=== PATIENT | male | born 1985 | race Caucasian/White ===

== ENCOUNTER 2017-09-14 23:30 | Inpatient (IN) | payer MEDICAID ==
[~2017-09-14] VITALS: Ht 172.7 cm; Wt 81.8 kg
[2017-09-15] VITALS (17 sets, daily range): BP systolic 116–151; BP diastolic 64–100
[2017-09-15] MEDS ORDERED: vancomycin/NS 1 GM ADD-VANTAGE 250 ML IV ONE (01:40)
[2017-09-15 02:16] LABS: BASOPHILS % (AUTO) 0.3 % (0-1); EOSINOPHILS # (AUTO) 0.3 X10'3 (0-0.9); EOSINOPHILS % (AUTO) 1.6 % (0-6); HEMATOCRIT 39.1 % (42.0-52.0); HEMOGLOBIN 13.2 g/dl (14.0-17.9); LYMPHOCYTES # (AUTO) 1.6 X10'3 (1.1-4.8); LYMPHOCYTES % (AUTO) 8.7 % (21-51); MEAN CORPUSCULAR HEMOGLOBIN 30.3 PG (27.0-31.0); MEAN CORPUSCULAR HGB CONC 33.8 % (33.0-36.5); MEAN CORPUSCULAR VOLUME 89.6 FL (78-98); MEAN PLATELET VOLUME 7.5 FL (7.4-10.4); MONOCYTES # (AUTO) 1.1 X10'3 (0-0.9); MONOCYTES % (AUTO) 6.1 % (2-12); NEUTROPHILS % (AUTO) 83.3 % (42-75); PLATELET COUNT 271 X10'3 (140-440); RED BLOOD COUNT 4.36 X10'6 (4.70-6.10); RED CELL DISTRIBUTION WIDTH 13.7 % (11.5-14.5)
[2017-09-15] MEDS ORDERED: cefepime 1GM/NS ADD-VANTAGE 100 ML IV SCH ×2 (02:19→12:00)
[2017-09-15 02:35] LABS: ALANINE AMINOTRANSFERASE 24 U/L (12-78); ALBUMIN 3.2 G/DL (3.4-5.0); ALBUMIN/GLOBULIN RATIO 0.7 (1.1-1.5); ALKALINE PHOSPHATASE 85 IU/L (46-116); ANION GAP 9 (8-16); ASPARTATE AMINO TRANSFERASE 19 U/L (10-37); BILIRUBIN,TOTAL 0.5 MG/DL (0.1-1.0); BLOOD UREA NITROGEN 14 MG/DL (7-18); CALCIUM 8.6 MG/DL (8.5-10.1); CHLORIDE 100 MMOL/L (99-107); CREATININE 0.61 MG/DL (0.60-1.10); GLUCOSE 123 MG/DL (70-104); POTASSIUM 3.5 MMOL/L (3.5-5.1); SODIUM 136 MMOL/L (135-145); TOTAL PROTEIN 7.6 G/DL (6.4-8.2); eGFR > 90 ML/MIN
[2017-09-15] MEDS ORDERED: magnesium 2GM in 50ml NS 50 ML IV PRN (03:00)
[2017-09-15] MEDS ORDERED: potassium Cl 20 mEq SR tablet PO PRN ×2 (03:00)
[2017-09-15] MEDS ORDERED: mag hydrox/Alum hydrox/simeth 30ml oral suspension PO PRN (03:00)
[2017-09-15] MEDS ORDERED: magnesium hydroxide 30ml (MOM) UD suspension PO PRN (03:00)
[2017-09-15] MEDS ORDERED: magnesium 4gm in 100ml NS 100 ML IV PRN (03:00)
[2017-09-15] MEDS ORDERED: ondansetron/PF 4mg/2ml inj IV PRN ×2 (03:00→16:40)
[2017-09-15] MEDS ORDERED: acetaminophen 325mg tablet PO PRN (03:00)
[2017-09-15] MEDS ORDERED: potassium Cl 40MEQ/NS 500ml 500 ML IV PRN ×2 (03:00)
[2017-09-15] MEDS ORDERED: HYDROmorphone inj. 0.5 MG/0.5 ML DISP.SYRIN IV PRN (03:00)
[2017-09-15 03:15] LABS: TOTAL CELLS COUNTED 100
[2017-09-15 03:16] LABS: PLATELET ESTIMATE NORMAL; TOXIC GRANULATION 2+; TOXIC VACUOLATION 1+
[2017-09-15] MEDS: normal saline 1000ml 1,000 ML IV SCH ×3 (03:54→22:57)
[2017-09-15] MEDS: K and/or MAG REPLACEMENT MC SCH (07:42)
[2017-09-15] MEDS: HYDROmorphone inj. 0.5 MG/0.5 ML DISP.SYRIN IV PRN ×2 (07:42→11:46)
[2017-09-15] MEDS: lactobacillus rhamnosus 10,000 MMU CELLS/CAPSULE PO SCH ×2 (07:42→20:00)
[2017-09-15] MEDS ORDERED: NO HOME MEDS (08:26)
[2017-09-15] MEDS: vancomycin inj 1,250 MG in normal saline 250ml IV soln 250 ML IV SCH ×2 (11:46→20:12)
[2017-09-15] MEDS: cefepime inj. 1 GM in dextrose 5%-water 50ml 50 ML IV SCH ×2 (13:49→22:45)
[2017-09-15] MEDS ORDERED: vancomycin 1,000mg inj ONE (16:33)
[2017-09-15] MEDS ORDERED: BUPIVAcaine/PF 2.5 mg/ml (0.25%) 30ml vial ONE (16:33)
[2017-09-15] MEDS ORDERED: sevoflurane 250ml liquid IH ONE (16:39)
[2017-09-15] MEDS ORDERED: ringers solution, lacted 1,000 ML IV SCH (16:39)
[2017-09-15] MEDS ORDERED: morphine 4 MG/ML inj SYRINge IV PRN ×2 (16:40)
[2017-09-15] MEDS ORDERED: proCHLORperazine 10 MG/2 ml inj IV PRN (16:40)
[2017-09-15] MEDS ORDERED: acetaminophen 1,000mg/100ml IV 100 ML IV PRN (16:40)
[2017-09-15] MEDS ORDERED: meperidine/PF 50mg/ml syringe IV PRN ×2 (16:40)
[2017-09-15] MEDS ORDERED: fentaNYL/PF 50MCG/1 ML 2ML syringe ONE (16:45)
[2017-09-15] MEDS ORDERED: midazolam 2 mg/2 ml injection ONE ×2 (16:47→17:41)
[2017-09-15] MEDS ORDERED: LIDOcaine 2% (20mg/ml) 5ml vial ONE (17:07)
[2017-09-15] MEDS ORDERED: propofol inj 20 ML IV ONE (17:07)
[2017-09-15] MEDS: meperidine/PF 50mg/ml syringe IV PRN ×4 (17:39→18:15)
[2017-09-15] MEDS: ketorolac trometh. 30mg/ml inj. IV ONE ×2 (17:49→18:19)
[2017-09-16] MEDS ORDERED: VANCOMYCIN LEVEL IV ONE (02:30)
[2017-09-16] MEDS: vancomycin inj 1,250 MG in normal saline 250ml IV soln 250 ML IV SCH ×3 (03:21→18:57)
[2017-09-16 04:04] LABS: BASOPHILS % (AUTO) 0.5 % (0-1); EOSINOPHILS # (AUTO) 0.5 X10'3 (0-0.9); HEMATOCRIT 35.1 % (42.0-52.0); HEMOGLOBIN 11.9 g/dl (14.0-17.9); LYMPHOCYTES # (AUTO) 1.6 X10'3 (1.1-4.8); LYMPHOCYTES % (AUTO) 19.3 % (21-51); MEAN CORPUSCULAR HEMOGLOBIN 30.4 PG (27.0-31.0); MEAN CORPUSCULAR VOLUME 89.4 FL (78-98); MEAN PLATELET VOLUME 7.4 FL (7.4-10.4); MONOCYTES # (AUTO) 0.9 X10'3 (0-0.9); MONOCYTES % (AUTO) 11.4 % (2-12); NEUTROPHILS # (AUTO) 5.1 X10'3 (1.8-7.7); NEUTROPHILS % (AUTO) 62.8 % (42-75); PLATELET COUNT 250 X10'3 (140-440); RED BLOOD COUNT 3.92 X10'6 (4.70-6.10); RED CELL DISTRIBUTION WIDTH 13.7 % (11.5-14.5); WHITE BLOOD COUNT 8.2 X10'3 (4.5-11.0)
[2017-09-16 04:21] LABS: ALANINE AMINOTRANSFERASE 17 U/L (12-78); ALBUMIN 2.3 G/DL (3.4-5.0); ALBUMIN/GLOBULIN RATIO 0.6 (1.1-1.5); ALKALINE PHOSPHATASE 75 IU/L (46-116); ANION GAP 5 (8-16); ASPARTATE AMINO TRANSFERASE 17 U/L (10-37); BILIRUBIN,TOTAL 0.2 MG/DL (0.1-1.0); BLOOD UREA NITROGEN 15 MG/DL (7-18); BUN/CREATININE RATIO 20.5 (5.4-32.0); CHLORIDE 108 MMOL/L (99-107); CREATININE 0.73 MG/DL (0.60-1.10); GLUCOSE 126 MG/DL (70-104); MAGNESIUM 1.9 MG/DL (1.5-2.4); POTASSIUM 4.1 MMOL/L (3.5-5.1); SODIUM 141 MMOL/L (135-145); TOTAL PROTEIN 6.2 G/DL (6.4-8.2); VANCOMYCIN,TROUGH 12.4 UG/ML (6.0-14.0); eGFR > 90 ML/MIN
[2017-09-16] MEDS: HYDROmorphone inj. 0.5 MG/0.5 ML DISP.SYRIN IV PRN ×4 (05:29→19:03)
[2017-09-16] MEDS: cefepime inj. 1 GM in dextrose 5%-water 50ml 50 ML IV SCH ×3 (05:29→20:40)
[2017-09-16 06:00] VITALS: BP 126/64
[2017-09-16 06:59] VITALS: BP 130/59
[2017-09-16] MEDS: K and/or MAG REPLACEMENT MC SCH (08:00)
[2017-09-16] MEDS: lactobacillus rhamnosus 10,000 MMU CELLS/CAPSULE PO SCH ×2 (08:42→20:40)
[2017-09-16] MEDS: normal saline 1000ml 1,000 ML IV SCH (09:30)
[2017-09-16] MEDS ORDERED: HYDROcodone/acetaminophen 10/325mg tab PO PRN (09:50)
[2017-09-16 10:00] VITALS: BP 134/81
[2017-09-16 14:00] VITALS: BP 137/88
[2017-09-16] MEDS: HYDROcodone/acetaminophen 10/325mg tab PO PRN ×2 (17:34→22:32)
[2017-09-16 18:00] VITALS: BP 132/81
[2017-09-16 18:28] LABS: URINE AMPHETAMINE SCREEN POSITIVE (Neg); URINE BARBITUATE SCREEN NEGATIVE (Neg); URINE BENZODIAZEPINES SCREEN POSITIVE (Neg); URINE CANNABINOID SCREEN NEGATIVE (Neg); URINE COCAINE SCREEN NEGATIVE (Neg); URINE METHADONE SCREEN NEGATIVE (Neg); URINE OPIATE SCREEN POSITIVE (Neg); URINE PHENCYCLIDINE SCREEN NEGATIVE (Neg)
[2017-09-16 22:00] VITALS: BP 148/89
[2017-09-17] MEDS: HYDROmorphone inj. 0.5 MG/0.5 ML DISP.SYRIN IV PRN (02:01)
[2017-09-17] MEDS: vancomycin inj 1,250 MG in normal saline 250ml IV soln 250 ML IV SCH (02:58)
[2017-09-17] MEDS: cefepime inj. 1 GM in dextrose 5%-water 50ml 50 ML IV SCH (04:42)
[2017-09-17] MEDS: HYDROcodone/acetaminophen 10/325mg tab PO PRN ×2 (04:45→08:54)
[2017-09-17 05:49] LABS: BASOPHILS % (AUTO) 0.5 % (0-1); EOSINOPHILS # (AUTO) 0.5 X10'3 (0-0.9); EOSINOPHILS % (AUTO) 7.4 % (0-6); HEMATOCRIT 35.3 % (42.0-52.0); HEMOGLOBIN 12.1 g/dl (14.0-17.9); LYMPHOCYTES # (AUTO) 1.6 X10'3 (1.1-4.8); LYMPHOCYTES % (AUTO) 24.4 % (21-51); MEAN CORPUSCULAR HEMOGLOBIN 30.5 PG (27.0-31.0); MEAN CORPUSCULAR HGB CONC 34.3 % (33.0-36.5); MEAN CORPUSCULAR VOLUME 88.8 FL (78-98); MEAN PLATELET VOLUME 7.6 FL (7.4-10.4); MONOCYTES # (AUTO) 0.6 X10'3 (0-0.9); MONOCYTES % (AUTO) 8.8 % (2-12); NEUTROPHILS # (AUTO) 3.8 X10'3 (1.8-7.7); NEUTROPHILS % (AUTO) 58.9 % (42-75); PLATELET COUNT 276 X10'3 (140-440); RED BLOOD COUNT 3.98 X10'6 (4.70-6.10); WHITE BLOOD COUNT 6.5 X10'3 (4.5-11.0)
[2017-09-17 06:00] VITALS: BP 147/83
[2017-09-17 06:26] LABS: ALANINE AMINOTRANSFERASE 22 U/L (12-78); ALBUMIN 2.5 G/DL (3.4-5.0); ALBUMIN/GLOBULIN RATIO 0.6 (1.1-1.5); ALKALINE PHOSPHATASE 72 IU/L (46-116); ANION GAP 6 (8-16); ASPARTATE AMINO TRANSFERASE 23 U/L (10-37); BILIRUBIN,TOTAL 0.3 MG/DL (0.1-1.0); BLOOD UREA NITROGEN 10 MG/DL (7-18); BUN/CREATININE RATIO 14.5 (5.4-32.0); CALCIUM 8.6 MG/DL (8.5-10.1); CHLORIDE 106 MMOL/L (99-107); CREATININE 0.69 MG/DL (0.60-1.10); GLUCOSE 131 MG/DL (70-104); POTASSIUM 3.7 MMOL/L (3.5-5.1); SODIUM 141 MMOL/L (135-145); TOTAL CARBON DIOXIDE 28.8 MMOL/L (24-32); TOTAL PROTEIN 6.6 G/DL (6.4-8.2); eGFR > 90 ML/MIN
[2017-09-17] MEDS: K and/or MAG REPLACEMENT MC SCH (08:00)
[2017-09-17] MEDS: lactobacillus rhamnosus 10,000 MMU CELLS/CAPSULE PO SCH (08:53)
[2017-09-17 09:30] VITALS: BP 141/92
[2017-09-17] MEDS ORDERED: VANCOMYCIN LEVEL IV ONE (10:30)
== END 2017-09-17 11:47 | disposition left against medical advice (07) | DRG 316 ==
LOC: ER 23:31 → ED HOLD 09-15 02:57 → EDBEDREQ 09-15 15:39 → PACU 09-15 16:00 → ORTHO 4S 09-15 18:50
PROVIDERS: ADMIT Family Medicine; ATTEND Family Medicine
PROC: 01N50ZZ Release Median Nerve, Open Approach (ICD-10-PCS; 2017-09-15)
PROC: 0LB70ZZ Excision of Right Hand Tendon, Open Approach (ICD-10-PCS; principal; 2017-09-15 16:39)
DX: M65.821 Other synovitis and tenosynovitis, right upper arm (principal); F15.10 Other stimulant abuse, uncomplicated; L03.113 Cellulitis of right upper limb; G56.01 Carpal tunnel syndrome, right upper limb; F17.210 Nicotine dependence, cigarettes, uncomplicated; L02.413 Cutaneous abscess of right upper limb; B95.62 Methicillin resistant Staphylococcus aureus infection as the cause of diseases classified elsewhere; L03.011 Cellulitis of right finger; Z79.82 Long term (current) use of aspirin; Z79.899 Other long term (current) drug therapy
CPT/HCPCS: 36415; 73130; 80053; 80202; 80305; 83605; 83735; 85025; 87040; 87070; 87075; 87077; 87186; 96374; 99285; A6222; A6446; A6449; A7000; J0131; J0692; J1170; J1885; J2001; J2175; J2250; J2270; J2405; J2704; J3010; J3370; J3490; J7030; J7060; J7120